=== PATIENT | male | born 1975 | race Caucasian/White ===

== ENCOUNTER 2018-01-05 10:39 | Inpatient (IN) | payer BC, OTHER ==
[2018-01-05] MEDS ORDERED: LABETALOL 5 MG/ML VIAL MDV IVP STA ×4 (10:59→15:55)
[2018-01-05 11:32] LABS: Basophils % (A) 1 %; Eosinophils # (A) 0.2 k/uL (0-0.7); Eosinophils % (A) 2 %; HCT 47.9 % (39.0-53.0); HGB 16.5 gm/dL (13.0-17.5); Lymphocytes % (A) 12 %; MCH 28.3 pg (25.0-35.0); MCHC 34.3 g/dL (31.0-37.0); MCV 82.3 fL (80.0-100.0); Monocytes # (A) 0.6 k/uL (0-1.0); Monocytes % (A) 7 %; Neutrophils % (A) 76 %; Platelet Count 286 k/uL (150-450); RBC 5.82 m/uL (4.30-5.90); RDW 13.1 % (11.5-15.5); WBC 7.9 k/uL (3.8-10.6)
--- NOTE | 2018-01-05 11:39 | ED ---
General Adult HPI - General Chief complaint: Recheck/Abnormal Lab/Rx Stated complaint: Hypertensive Time Seen by Provider: 01/05/18 10:49 Source: patient, RN notes reviewed, old records reviewed Mode of arrival: ambulatory Limitations: no limitations - History of Present Illness Initial comments: This is a 42-year-old male to the ER for evaluation. States patient's presenting for evaluation regards to elevated blood pressure. Patient has history of high blood pressure but takes no medication. Patient was seen his primary care doctor's office and sent to ER for evaluation regards to significantly elevated blood pressure. Patient is relatively symptomatically chest pain or shortness of breath no headache no abdominal pain. - Related Data Home Medications Medication Instructions Recorded Confirmed Dm/Acetaminophen/Doxylamine [Vicks 30 ml PO Q6HR PRN 01/05/18 01/05/18 Nyquil Cold-Flu Liquid] Ibuprofen [Motrin] 800 mg PO TID PRN 01/05/18 01/05/18 guaiFENesin SYRUP 100MG/5ML 200 mg PO Q6H PRN 01/05/18 01/05/18 [Robitussin] Allergies Allergy/AdvReac Type Severity Reaction Status Date / Time No Known Allergies Allergy Verified 01/05/18 10:53 Review of Systems ROS Statement: Those systems with pertinent positive or pertinent negative responses have been documented in the HPI. ROS Other: All systems not noted in ROS Statement are negative. Past Medical History Past Medical History: Hypertension History of Any Multi-Drug Resistant Organisms: None Reported Additional Past Surgical History / Comment(s): surgery to open blocked bile duct Past Psychological History: No Psychological Hx Reported Smoking Status: Never smoker Past Alcohol Use History: Occasional Past Drug Use History: None Reported General Exam Limitations: no limitations General appearance: alert, in no apparent distress Head exam: Present: atraumatic, normocephalic, normal inspection Eye exam: Present: normal appearance, PERRL, EOMI. Absent: scleral icterus, conjunctival injection, periorbital swelling ENT exam: Present: normal exam, mucous membranes moist Neck exam: Present: normal inspection. Absent: tenderness, meningismus, lymphadenopathy Respiratory exam: Present: normal lung sounds bilaterally. Absent: respiratory distress, wheezes, rales, rhonchi, stridor Cardiovascular Exam: Present: normal rhythm, tachycardia, normal heart sounds. Absent: systolic murmur, diastolic murmur, rubs, gallop, clicks GI/Abdominal exam: Present: soft, normal bowel sounds. Absent: distended, tenderness, guarding, rebound, rigid Extremities exam: Present: normal inspection, full ROM, normal capillary refill. Absent: tenderness, pedal edema, joint swelling, calf tenderness Back exam: Present: normal inspection Neurological exam: Present: alert, oriented X3, CN II-XII intact Psychiatric exam: Present: normal affect, normal mood Skin exam: Present: warm, dry, intact, normal color. Absent: rash Course Vital Signs 01/05/18 01/05/18 01/05/18 10:40 11:44 12:46 Temperature 97.8 F Pulse Rate 117 H 92 96 Respiratory 18 18 18 Rate Blood Pressure 225/158 189/124 195/126 O2 Sat by Pulse 95 96 97 Oximetry 01/05/18 14:20 Temperature 98.4 F Pulse Rate 89 Respiratory 20 Rate Blood Pressure 201/132 O2 Sat by Pulse 99 Oximetry - Reevaluation(s) Reevaluation #1: 01/05/18 14:52 Patient's blood pressure and heart rate remains elevated despite multiple medications. We'll admit for blood pressure control EKG Findings - EKG Comments: EKG Findings:: EKG shows normal sinus tachycardia rate of 106, [place] 160, QRS 78, QTC 491 Medical Decision Making - Medical Decision Making 42 male the ER for evaluation of respiratory infection. Patient is severely elevated blood pressure uncontrolled after for blood pressure medications here in the emergency room, patient be admitted for blood pressure control and treatment of underlying pneumonia, community-acquired - Lab Data Result diagrams: 01/05/18 11:10 01/05/18 11:10 Lab Results 01/05/18 01/05/18 01/05/18 Range/Units 11:10 11:10 11:10 WBC 7.9 (3.8-10.6) k/uL RBC 5.82 (4.30-5.90) m/uL Hgb 16.5 (13.0-17.5) gm/dL Hct 47.9 (39.0-53.0) % MCV 82.3 (80.0-100.0) fL MCH 28.3 (25.0-35.0) pg MCHC 34.3 (31.0-37.0) g/dL RDW 13.1 (11.5-15.5) % Plt Count 286 (150-450) k/uL Neutrophils % 76 % Lymphocytes % 12 % Monocytes % 7 % Eosinophils % 2 % Basophils % 1 % Neutrophils # 6.0 (1.3-7.7) k/uL Lymphocytes # 1.0 (1.0-4.8) k/uL Monocytes # 0.6 (0-1.0) k/uL Eosinophils # 0.2 (0-0.7) k/uL Basophils # 0.0 (0-0.2) k/uL Sodium 142 (137-145) mmol/L Potassium 4.8 (3.5-5.1) mmol/L Chloride 101 (98-107) mmol/L Carbon Dioxide 27 (22-30) mmol/L Anion Gap 14 mmol/L BUN 17 (9-20) mg/dL Creatinine 0.80 (0.66-1.25) mg/dL Est GFR (CKD-EPI)AfAm >90 (>60 ml/min/1.73 sqM) Est GFR (CKD-EPI)NonAf >90 (>60 ml/min/1.73 sqM) Glucose 140 H (74-99) mg/dL Calcium 9.9 (8.4-10.2) mg/dL Phosphorus 3.6 (2.5-4.5) mg/dL Magnesium 1.9 (1.6-2.3) mg/dL Total Bilirubin 0.8 (0.2-1.3) mg/dL AST 39 (17-59) U/L ALT 25 (21-72) U/L Alkaline Phosphatase 119 (38-126) U/L Total Creatine Kinase 135 (55-170) U/L CK-MB (CK-2) 1.1 (0.0-2.4) ng/mL CK-MB (CK-2) Rel Index 0.8 Troponin I <0.012 (0.000-0.034) ng/mL Total Protein 7.1 (6.3-8.2) g/dL Albumin 4.1 (3.5-5.0) g/dL TSH 0.922 (0.465-4.680) mIU/L Critical Care Time Critical Care Time: Yes Total Critical Care Time: 31 Disposition Clinical Impression: Hypertensive urgency, Community acquired pneumonia Disposition: ADMITTED IP TO THIS HOSP Condition: Fair Is patient prescribed a controlled substance at d/c from ED?: No Referrals: Kamran Bergeron DO [Primary Care Provider] - 1-2 days
[2018-01-05 11:49] LABS: ALT 25 U/L (21-72); AST 39 U/L (17-59); Albumin 4.1 g/dL (3.5-5.0); Alkaline Phosphatase 119 U/L (38-126); Anion Gap 14 mmol/L; Blood Urea Nitrogen 17 mg/dL (9-20); Calcium 9.9 mg/dL (8.4-10.2); Carbon Dioxide 27 mmol/L (22-30); Chloride 101 mmol/L (98-107); Glucose 140 mg/dL (74-99); Magnesium 1.9 mg/dL (1.6-2.3); Phosphorus 3.6 mg/dL (2.5-4.5); Sodium 142 mmol/L (137-145); Total Bilirubin 0.8 mg/dL (0.2-1.3); Total Protein 7.1 g/dL (6.3-8.2)
[2018-01-05 11:54] LABS: Creatine Kinase 135 U/L (55-170)
[2018-01-05 12:07] LABS: Creatine Kinase MB 1.1 ng/mL (0.0-2.4); Troponin I <0.012 ng/mL (0.000-0.034)
[2018-01-05 12:23] LABS: Potassium 4.8 mmol/L (3.5-5.1)
--- NOTE | 2018-01-05 13:23 | XR ---
EXAMINATION TYPE: XR chest 2V DATE OF EXAM: 01/05/2018 COMPARISON: NONE HISTORY: Chest pain with cough and congestion. TECHNIQUE: Frontal and lateral views of the chest are obtained. FINDINGS: There is suspicious right midlung opacity seen better on frontal view. Left lung is suspec juanita clear. No pleural effusion or pneumothorax is seen bilaterally. There is azygos lobe/fissure inci dentally seen. The cardiac silhouette size is within normal limits with atherosclerotic aorta. The osseous structures are intact. IMPRESSION: Suspicious right suprahilar acute infiltrate.
[2018-01-05] MEDS ORDERED: RX INFO: IV CONTRAST WAS GIVEN 1 EACH MISC MISCELLANE PRN (13:33)
[2018-01-05] MEDS ORDERED: AZITHROMYCIN 500 MG in SODIUM CHLORIDE 0.9% 250 ML IVPB STA (13:34)
--- NOTE | 2018-01-05 14:32 | CT ---
EXAMINATION TYPE: CT chest w con DATE OF EXAM: 01/05/2018 COMPARISON: NONE HISTORY: Mass, Pain CT DLP: 838 mGycm. Automated Exposure Control for Dose Reduction was Utilized. TECHNIQUE: CT scan of the thorax is performed following with IV Contrast, patient injected with 100 ml mL of Isovue 300. FINDINGS: LUNGS: Multifocal groundglass and tree-in-bud opacities are seen within the right upper lobe and righ t lower lobe most confluent within the right suprahilar region with few air bronchograms. Additionall y within the left lower lobe similar findings are seen with linear component of atelectasis. To lesse r degree left upper lobe and lingular tree-in-bud opacities are seen. Right middle lobe appears spare d. Incidental note is made of an azygous lobe and azygous fissure. MEDIASTINUM: Adenopathy within the mediastinum measures up to 1.5 cm in short axis in the left paratr acheal region. Ascending thoracic aorta is within normal limits of size measuring 3.6 cm. No perica rdial effusion is seen. OTHER: Minimal bilateral retroareolar gynecomastia is noted. Diffuse decreased attenuation of the hep atic parenchyma most commonly relates to hepatic steatosis. Pancreatic atrophy is partially visualize d. Mild multilevel degenerative changes of the thoracic spine are seen. IMPRESSION: Multifocal reticular nodular, groundglass, and tree-in-bud opacities most fitting of multifocal pneum onia with component of left basilar atelectasis and likely reactive mediastinal adenopathy. Atypical pneumonia should also be considered. Follow-up after treatment is recommended to ensure resolution gi bryan the multifocal nodularity.
[2018-01-05] MEDS ORDERED: LORazepam 2 MG/ML INJ IV STA ×2 (14:38→15:55)
[2018-01-05] MEDS ORDERED: cefTRIAXone IN SWFI 1,000 MG/10 ML SYRINGE IVP STA (14:49)
[2018-01-05] MEDS ORDERED: PNEUMONIA PROTOCOL UTILIZED 1 EACH MISC PO PRN (14:49)
[2018-01-05] MEDS ORDERED: hydrALAZINE HCL 20 MG/ML 1 ML VIAL IVP STA (14:52)
[2018-01-05] MEDS ORDERED: SODIUM CHLORIDE 0.9% 1,000 ML IV SCH (15:00)
[2018-01-05] MEDS ORDERED: MORPHINE SULFATE 4 MG/ML SYRINGE IVP STA ×2 (16:07→18:59)
[2018-01-05] MEDS: hydrALAZINE HCL 20 MG/ML 1 ML VIAL IVP PRN ×2 (19:07→22:25)
[2018-01-05] MEDS ORDERED: LABETALOL 5 MG/ML VIAL MDV IVP PRN (20:51)
[2018-01-05] MEDS ORDERED: LORazepam 2 MG/ML INJ IV PRN ×3 (20:55)
[2018-01-05] MEDS: HYDROcodone/APAP 5-325MG 1 EACH TAB PO PRN (20:58)
[2018-01-05] MEDS: METOPROLOL TARTRATE 50 MG TAB PO SCH (20:59)
[2018-01-05] MEDS ORDERED: LORazepam 1 MG TAB PO STA (23:38)
[2018-01-05] MEDS ORDERED: cloNIDine HCL 0.1 MG TAB PO PRN (23:44)
[2018-01-06] MEDS: cloNIDine HCL 0.1 MG TAB PO SCH ×4 (00:41→23:12)
[2018-01-06] MEDS: hydrALAZINE HCL 20 MG/ML 1 ML VIAL IVP PRN ×3 (02:54→10:28)
[2018-01-06] MEDS: HYDROcodone/APAP 5-325MG 1 EACH TAB PO PRN ×2 (04:49→08:42)
--- NOTE | 2018-01-06 06:48 | HP ---
HISTORY AND PHYSICAL DATE OF SERVICE: 01/05/2018 CHIEF COMPLAINT: Hypertension. HISTORY OF PRESENT ILLNESS: This 42-year-old gentleman with a past medical history of multiple medical problems include hypertension, sleep apnea, chronic back pain, DJD, history of smoking, occasional alcohol, being followed by Dr. Kamran Bergeron in the outpatient setting presented with hypertension. The blood pressure is elevated. The patient is apparently not taking medications. The patient was evaluated in the primary physician's office and sent to [facility] for further evaluation and treatment. Otherwise, there is no history of any fever, rigors. No history of headache, loss of consciousness, seizures at this time. The patient complains of minimal headache. The blood pressure has been elevated up to 209/124. There is no history of fever, rigors or chills at this time. The patient also complaining of cough and sputum and was thought to have some pneumonia on the chest x-ray especially the right suprahilar area. PAST MEDICAL HISTORY: History of hypertension, sleep apnea, history of DJD, history of nicotine dependence. MEDICATIONS: Medications prior to admission include: 1. Vicks NyQuil 30 mL q.6 p.r.n. 2. Motrin 800 mg t.i.d. p.r.n. 3. Robitussin 200 mg q.6 p.r.n. ALLERGIES: Allergies are none. FAMILY HISTORY: History of diabetes and hypertension. SOCIAL HISTORY: History of previous smoking and alcohol as mentioned earlier. REVIEW OF SYSTEMS: ENT: No diminished hearing or vision. CARDIOVASCULAR SYSTEM: No angina or palpitations, as mentioned earlier. RESPIRATORY SYSTEM: As mentioned earlier. GI: No nausea. : No dysuria. NERVOUS SYSTEM: No numbness or weakness. ALLERGY/IMMUNOLOGY: No history of asthma. MUSCULOSKELETAL: As mentioned earlier. HEMATOLOGY/ONCOLOGY: No history of anemia. ENDOCRINE: No history of diabetes or hypothyroidism. CONSTITUTIONAL: As mentioned earlier. DERMATOLOGY: Negative. RHEUMATOLOGY: Negative. PSYCHIATRY: As mentioned earlier. PHYSICAL EXAMINATION: The patient is alert and oriented x3. Pulse 95, blood pressure 197/120, respiration 18, temperature 98.4, pulse ox 94% on room air. HEENT: Conjunctivae normal. NECK: No jugular venous distention. CARDIOVASCULAR: S1 and S2 muffled. RESPIRATORY: Breath sounds diminished at the bases. A few scattered rhonchi. No crackles. ABDOMEN: Soft, nontender. No mass palpable. LEGS: No edema, no swelling. NERVOUS SYSTEM: Higher function as mentioned earlier. Moves all 4 limbs. No focal motor or sensory deficits LYMPHATICS: No lymphadenopathy of the neck, axillae or groin. SKIN: No ulcer, rash or bleeding. LABS: WBC 7.9, hemoglobin 16.5. Sodium 142. ASSESSMENT: 1. Accelerated and uncontrolled hypertension with hypertensive urgency. 2. Rule out pneumonia. 3. History of sleep apnea. 4. History of EtOH. 5. History of nicotine dependence. 6. History of diabetes mellitus, which is in remission per history. 7. Obesity with body mass index of 38.2. RECOMMENDATIONS AND DISCUSSION: In this 42-year-old gentleman who presented with multiple complex medical issues, will monitor the patient closely. Continue the current medications and symptomatic treatment. I would recommended empiric antibiotics otherwise clonidine and also I would recommend Cardiology evaluation also. I would also recommend symptomatic treatment, CIWA protocol for possible alcohol withdrawal. Prognosis guarded because of multiple complex medical issues. Further recommendations to follow. Discussed with the patient. A copy of dictation forwarded to Dr. Kamran Bergeron who is the primary physician. MMODL / IJN: [id number] /
--- NOTE | 2018-01-06 08:23 | XR ---
EXAMINATION TYPE: XR chest 2V DATE OF EXAM: 01/06/2018 COMPARISON: 01/05/2019 HISTORY: 42-year-old male pneumonia TECHNIQUE: Frontal and lateral views FINDINGS: Heart normal size. Aorta and pulmonary vasculature within normal limits. Suggestion of an azygos fiss ure. Focal patchy right midlung opacity persists. Lesser degree of patchy opacity at the lower left l yunior. No pleural effusion. IMPRESSION: Focal right midlung infiltrate persists. Some subtle patchy left lower lung density is also similar.
[2018-01-06] MEDS: METOPROLOL TARTRATE 50 MG TAB PO SCH (08:36)
[2018-01-06] MEDS ORDERED: cefTRIAXone IN SWFI 1,000 MG/10 ML SYRINGE IVP SCH (09:00)
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
[2018-01-06] MEDS: amLODIPine 5 MG TAB PO SCH ×2 (12:46→20:15)
[2018-01-06] MEDS: LISINOPRIL 20 MG TAB PO SCH (12:46)
[2018-01-06] MEDS: AZITHROMYCIN 500 MG TAB PO SCH (12:46)
[2018-01-06] MEDS ORDERED: ONDANSETRON 4 MG/2 ML VIAL IVP PRN (13:13)
[2018-01-06] MEDS ORDERED: AZITHROMYCIN 500 MG in SODIUM CHLORIDE 0.9% 250 ML IVPB SCH (16:00)
[2018-01-06] MEDS: ASPIRIN-ACET-CAFF 250-250-65MG 1 EACH TAB PO PRN (21:43)
--- NOTE | 2018-01-07 07:07 | PN ---
PROGRESS NOTE DATE OF SERVICE: 01/06/2018 PRESENTING COMPLAINT: Cough, short of breath. INTERVAL HISTORY: This patient presented with uncontrolled blood pressure and also pneumonia. Patient had been clearing shrubs. The patient is otherwise pretty healthy and active. I saw this patient earlier today. The patient slept well, having a bit of a headache, bit of a nausea. was present at the bedside. The patient is bringing up some thick green sputum. No obvious fever. Appetite is down, tired. REVIEW OF SYSTEMS: Review of systems done for constitutional, cardiovascular, GI, pulmonary; relevant findings as above. CURRENT MEDICATIONS: Current medications are reviewed that include Zithromax, Zestril, Norvasc. PHYSICAL EXAMINATION: On examination, afebrile pulse 117, respirations 18, blood pressure 195/126, pulse ox 97% on room air. GENERAL APPEARANCE: BMI 39. Lying in bed, tired appearing, awake. EYES: Pupils equal. Conjunctivae normal. HENT: External appearance of the nose and ears normal. Oral cavity normal. NECK: JVD not raised. Mass not palpable. RESPIRATORY: Effort increased. LUNGS: Decreased breath sounds, some basal crackles. CARDIOVASCULAR: First and second sounds normal. No edema. ABDOMEN: Soft, nontender. Liver and spleen not palpable. PSYCHIATRY: Alert and oriented x3. Mood and affect normal. NEUROLOGICAL: No focal weakness. Able to touch the chin down to his chest. INVESTIGATION: The patient's white count was normal when he came in. ASSESSMENT: 1. This is a patient with white count, afebrile, presented with bilateral infiltrates, more of atypical pneumonia. Patient was cleaning out shrubs. He likely picked up an atypical organism. 2. Obesity, body mass index 39. 3. It may be noted that patient is not hypoxic. 4. Toxic and headache from lack of sleep. PLAN: Cardiology is adjusting the patient's blood pressure medications. I did check on the patient later in the evening. The patient is actually feeling better. Will send off patient's sputum for Gram stain and culture. This probably will not show any atypical organisms. Will repeat blood work in the morning. The good thing is the patient is not hypoxic. Normal white count, afebrile, and like I stated patient is already feeling better in the evening. Care was discussed with the patient and both in the morning and the evening. CAMI / MALINAN: [id number] /
[2018-01-07] MEDS: AZITHROMYCIN 500 MG TAB PO SCH (07:59)
[2018-01-07] MEDS: ENOXAPARIN 40 MG/0.4 ML SYRINGE SQ SCH (07:59)
[2018-01-07] MEDS: amLODIPine 5 MG TAB PO SCH ×2 (07:59→20:23)
[2018-01-07] MEDS: cloNIDine HCL 0.1 MG TAB PO SCH (08:00)
[2018-01-07] MEDS: ASPIRIN-ACET-CAFF 250-250-65MG 1 EACH TAB PO PRN ×2 (08:42→18:56)
[2018-01-07] MEDS: ALBUTEROL NEBULIZED 2.5 MG/3 ML INHALATION SCH ×4 (08:56→20:28)
--- NOTE | 2018-01-07 11:11 | ECHOF ---
Referral Reason:htn MEASUREMENTS -------- HEIGHT: 182.9 cm WEIGHT: 130.2 kg BP: 188/115 RVIDd: 3.4 cm (< 3.3) IVSd: 1.9 cm (0.6 - 1.1) LVIDd: 4.2 cm (3.9 - 5.3) LVPWd: 1.9 cm (0.6 - 1.1) IVSs: 2.2 cm LVIDs: 2.2 cm LVPWs: 2.2 cm LAESV Index (A-L): 19.54 ml/m Ao Diam: 4.3 cm (2.0 - 3.7) AV Cusp: 1.8 cm (1.5 - 2.6) LA Diam: 3.2 cm (2.7 - 3.8) RAP: 5.00 mmHg RVSP: 32.66 mmHg FINDINGS -------- Sinus rhythm. This was a technically adequate study. The left ventricular size is normal. There is severe concentric left ventricular hypertrophy. Lef t ventricular systolic function is hyperdynamic with an estimated EF of >70%. The right ventricle is normal in size and function. Normal LA size by volume 22+/-6 ml/m2. The right atrium is normal in size. The aortic valve is trileaflet, and appears structurally normal. No aortic stenosis or regurgitation. The mitral valve is normal. There is trace to mild mitral regurgitation. Trace tricuspid regurgitation present. Right ventricular systolic pressure is normal at < 35 mmHg. There is no evidence of pulmonary hypertension. Trace/mild (physiologic) pulmonic regurgitation. The aortic root is mildy dilated up to 4.0cm. IVC Not well visulized. There is no pericardial effusion. CONCLUSIONS -------- 1. Sinus rhythm. 2. This was a technically adequate study. 3. The left ventricular size is normal. 4. There is severe concentric left ventricular hypertrophy. 5. Left ventricular systolic function is hyperdynamic with an estimated EF of >70%. 6. Normal LA size by volume 22+/-6 ml/m2. 7. The aortic valve is trileaflet, and appears structurally normal. No aortic stenosis or regurgitati on. 8. There is trace to mild mitral regurgitation. 9. Trace tricuspid regurgitation present. 10. Right ventricular systolic pressure is normal at < 35 mmHg. 11. There is no evidence of pulmonary hypertension. 12. Trace/mild (physiologic) pulmonic regurgitation. 13. The aortic root is mildy dilated up to 4.0cm. 14. IVC Not well visulized. 15. There is no pericardial effusion. ADMINISTRATIVE MEDICAL DIRECTOR: Kyle Waite RDCS
--- NOTE | 2018-01-07 11:46 | XR ---
EXAMINATION TYPE: XR chest 1V DATE OF EXAM: 01/07/2018 COMPARISON: 01/06/2018 HISTORY: Pneumonia. Follow-up exam. TECHNIQUE: Single frontal view of the chest is obtained. FINDINGS: There is near complete radiographic resolution the previously seen left basilar atelectasi s and right midlung opacity. Cardiomediastinal silhouette is again upper limits of normal in size. Az ygos fissure and azygos lobe are incidentally noted again. Osseous structures are intact with mild mu ltilevel degenerative changes of the thoracic spine. IMPRESSION: Near complete radiographic resolution of the previously seen right midlung pneumonia and left basilar atelectasis.
[2018-01-07] MEDS: LISINOPRIL 20 MG TAB PO SCH (12:12)
[2018-01-07] MEDS: IPRATROPIUM-ALBUTEROL 3 ML NEB INHALATION PRN (13:02)
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
--- NOTE | 2018-01-07 14:55 | P.PN ---
Subjective Progress Note Date: 01/07/18 This is a 42-year-old gentleman with history of hypertension, not currently taking any medications. History of sleep apnea. He states that he started exercising and eating right and his blood pressure seemed to improve. He denies any history of diabetes, no high cholesterol, he is a nonsmoker, he states that 5 days a week he drinks a minimum of 6 alcoholic beverages. Patient states that recently he's been having fevers at home as well as a productive cough of green sputum, approximately a week ago felt as though he had the flu. He was directed to come to the emergency room by his primary care doctor because of significantly elevated blood pressures. Blood pressure on arrival to 25/158, heart rate in the 1 teens, 95% on room air. Temperature was 97.8. Blood pressure this morning 188/115, heart rate in the 80s, 93% on room air. EKG on admission showed a sinus tachycardia no acute changes. Chest x- ray suspicious for right suprahilar acute infiltrate. CAT scan of the chest revealed multifocal reticular nodular groundglass Santiago obese, most fitting for multifocal pneumonia, component of left basilar atelectasis and likely reactive mediastinal adenopathy. Repeat chest x-ray this morning shows focal right midlung infiltrate. CBC is normal. Sodium 142, potassium 4.8, BUN 17, creatinine 0.8. Magnesium 1.9. Troponin 0.012, TSH 0.92. Influenza A and B were negative. 01/07/2018 Patient was seen and examined this morning, he states that he is feeling significantly better today. Blood pressure is improving significantly on his current medications. Blood pressure this morning 159/103, heart rate in the 80s , 94% on room air. The pressure earlier this morning 138/90 134/80. We will increase the dose of Catapres, continue the addition of other medications for blood pressure as well. Echocardiogram with Doppler study was performed which revealed a normal left ventricular systolic function. We will continue to monitor the patient for the next 24 hours, if stable possible discharge home in the morning. Objective - Vital Signs Vital signs: Vital Signs Temp 97.8 F 01/07/18 11:44 Pulse 92 01/07/18 13:14 Resp 16 01/07/18 11:44 BP 159/103 01/07/18 11:44 Pulse Ox 94 L 01/07/18 11:44 Intake & Output 01/06/18 01/07/18 01/07/18 18:59 06:59 18:59 Intake Total 2875 1184 Output Total 1000 Balance 1875 1184 Weight 127.1 kg Intake: Oral 2875 1184 Output: Emesis 1000 Other: Voiding Method Toilet Toilet Toilet Urinal Urinal Urinal # Voids 3 1 1 - Exam PHYSICAL EXAMINATION: HEENT: [Head is atraumatic, normocephalic. Pupils equal, round. Neck is supple. There is no elevated jugular venous pressure.] HEART EXAMINATION: [Heart S1, S2 normal. No murmur or gallop heard.] CHEST EXAMINATION:[ Lungs are clear to auscultation and precussion. No chest wall tenderness is noted on palpation or with deep breathing.] ABDOMEN: [ Soft, nontender. Bowel sounds are heard. No organomegaly noted]. EXTREMITIES:[ 2+ peripheral pulses with no evidence of peripheral edema and no calf tenderness noted]. NEUROLOGIC [patient is awake, alert and oriented -3.] . - Labs CBC & Chem 7: 01/05/18 11:10 01/05/18 11:10 Labs: Microbiology - Last 24 Hours (Table) 01/05/18 13:00 Blood Culture - Preliminary Blood No Growth after 24 hours Assessment and Plan Plan: Assessment and plan #1 hypertensive urgency #2 possible pneumonia, chest x-ray shows new infiltrate. Patient has had recent fever and chills at home, productive cough of green sputum. #3 sleep apnea #4 significant EtOH use, patient states that 5 days a week he drinks a minimum of 6 alcoholic beverages. Plan Echocardiogram with Doppler study revealed a normal left ventricular systolic function. We will increase the dose of clonidine today 2.2 mg 3 times a day, continue to monitor the patient for 24 hours, plan on possible discharge home in the morning if stable. Patient has been instructed strongly regarding the importance of EtOH cessation. DNP note has been reviewed, I agree with a documented findings and plan of care. Patient was seen and examined.
[2018-01-07] MEDS: cloNIDine HCL 0.2 MG TAB PO SCH ×2 (15:47→21:47)
--- NOTE | 2018-01-07 23:10 | PN ---
PROGRESS NOTE DATE OF SERVICE: 01/07/2018 PRESENTING COMPLAINT: Cough. INTERVAL HISTORY: This patient presented with uncontrolled blood pressure and pneumonia felt to be atypical organism. The patient is doing better this morning. Very little cough. Blood pressure medications were adjusted by Cardiology. The patient is going to take a shower. REVIEW OF SYSTEMS: Done for constitutional, cardiovascular, GI, pulmonary; relevant findings as above. CURRENT MEDICATIONS: Reviewed that include Ventolin, Norvasc 5 mg b.i.d., Zithromax 500 mg a day, Catapres 0.2 mg t.i.d., new increased dose today, Zestril 20 mg. PHYSICAL EXAMINATION: Temperature 97.9, pulse 79, respirations 16, blood pressure in the evening gone up to 178/104, pulse ox 93% on room air. GENERAL APPEARANCE: Sitting up, more comfortable. EYES: Pupils equal. Conjunctivae normal. HEENT: External appearance of nose and ears normal. Oral cavity normal. NECK: JVD not raised. Mass not palpable. Respiratory effort increased. LUNGS: Improved air entry. CARDIOVASCULAR: First and second sounds normal. No edema. ABDOMEN: Soft, nontender. Liver and spleen not palpable. PSYCHIATRY: Alert and oriented x3. Mood and affect normal. INVESTIGATIONS: A 2D echo showed preserved LV function, severe concentric left ventricular hypertrophy. ASSESSMENT: 1. Bilateral atypical pneumonia, responding well to Zithromax. 2. Obesity, BMI of 39. 3. Hypertensive heart disease. 4. Accelerated hypertension. 5. Toxic cephalgia, now resolved. PLAN: From a pulmonary standpoint, the patient is doing better. Dr. Stinson's consult noted. Blood pressure still running in the 170 systolic this evening. We will adjust the patient's lisinopril to lisinopril hydrochlorothiazide 20/12.5, starting a dose this evening. Hoping the patient can be discharged by tomorrow. MMODL / IJN: [id number] /
[2018-01-07] MEDS: LISINOPRIL-HCTZ 20-12.5 MG 1 EACH TAB PO SCH (23:17)
[2018-01-08 06:22] LABS: Basophils # (A) 0.1 k/uL (0-0.2); Basophils % (A) 1 %; Eosinophils # (A) 0.2 k/uL (0-0.7); Eosinophils % (A) 3 %; HGB 14.6 gm/dL (13.0-17.5); Lymphocytes # (A) 1.4 k/uL (1.0-4.8); Lymphocytes % (A) 20 %; MCH 27.8 pg (25.0-35.0); MCHC 33.2 g/dL (31.0-37.0); MCV 83.9 fL (80.0-100.0); Mean Platelet Volume 7.2; Monocytes # (A) 0.7 k/uL (0-1.0); Monocytes % (A) 11 %; Neutrophils # (A) 4.4 k/uL (1.3-7.7); Neutrophils % (A) 64 %; Platelet Count 308 k/uL (150-450); RBC 5.24 m/uL (4.30-5.90); RDW 13.4 % (11.5-15.5); WBC 6.9 k/uL (3.8-10.6)
[2018-01-08 06:39] LABS: Anion Gap 11 mmol/L; Blood Urea Nitrogen 16 mg/dL (9-20); Calcium 9.1 mg/dL (8.4-10.2); Carbon Dioxide 27 mmol/L (22-30); Chloride 100 mmol/L (98-107); Glucose 140 mg/dL (74-99); Potassium 4.1 mmol/L (3.5-5.1); Sodium 138 mmol/L (137-145)
[2018-01-08] MEDS: ALBUTEROL NEBULIZED 2.5 MG/3 ML INHALATION SCH ×4 (08:05→19:22)
[2018-01-08] MEDS: ENOXAPARIN 40 MG/0.4 ML SYRINGE SQ SCH (08:41)
[2018-01-08] MEDS: LISINOPRIL-HCTZ 20-12.5 MG 1 EACH TAB PO SCH (08:41)
[2018-01-08] MEDS: amLODIPine 5 MG TAB PO SCH ×2 (08:41→20:46)
[2018-01-08] MEDS: cloNIDine HCL 0.2 MG TAB PO SCH ×3 (08:42→21:44)
[2018-01-08] MEDS: AZITHROMYCIN 500 MG TAB PO SCH (08:42)
[2018-01-08] MEDS: ASPIRIN-ACET-CAFF 250-250-65MG 1 EACH TAB PO PRN (10:48)
[2018-01-08] MEDS ORDERED: IOPAMIDOL-300 CONTRAST 30 ML VIAL (ORAL USE) PO PRN (11:54)
[2018-01-08] MEDS ORDERED: RX INFO: IV CONTRAST WAS GIVEN 1 EACH MISC MISCELLANE PRN (11:54)
[2018-01-08] MEDS ORDERED: LISINOPRIL 10 MG TAB PO SCH (12:00)
[2018-01-08] MEDS: SPIRONOLACTONE-HCTZ 25-25MG 1 EACH TAB PO SCH (12:27)
[2018-01-08] MEDS: CARVEDILOL 12.5 MG TAB PO SCH ×2 (12:27→17:51)
--- NOTE | 2018-01-08 13:48 | P.PN ---
Subjective Progress Note Date: 01/08/18 Principal diagnosis: Acute bilateral pneumonia, recovered on Zithromax, hypertension A 42-year-old male patient, obese, known history of hypertension, who developed symptoms of URI approximately 2 weeks ago. He seems to be recovering and subsequently his condition got worse and the patient came in to the hospital because of increased cough, chest congestion and dyspnea. He was also having elevated blood pressure at time of admission. His pulse ox was 95% on room air at time of admission and he was afebrile. His blood pressure was high as 188/ 115. Chest x-ray showed bilateral patchy pulmonary infiltrates and following that the patient a CAT scan of the chest that showed bilateral pneumonia including multifocal reticular nodular groundglass changes involving the left basilar area and the right upper and lower lobe area. There is also some reactive lymphadenopathy within the mediastinum. The patient was placed on Zithromax. Interestingly the patient had 6 significant improvement and I reviewed a series of chest exit was done on 01/05 and then 01/06 and then 01/07/2018 , and the chest x-ray from today shows near complete radiographic resolution of the previously seen right midlung and left basilar infiltrates. Clinically the patient is doing much better. No significant cough or sputum production. Cultures of been negative. Blood work is also within normal limits. Influenza screen was negative. He has suspected obstructive sleep apnea. His been utilizing an old CPAP unit that was given to him by his father. Diagnosis of EMIGDIO has not been officially establish in this patient. No nausea. No vomiting. No diarrhea. No abdominal pain. No headaches. No change in mental status. He is drinking alcohol in excess. On 01/08/2018 patient seen in follow-up on selective care floor. In the chair, in no acute distress. Currently on room air, with O2 sat at 94%, afebrile, remains hypertensive, with SBP in the 150's-180's, and DBP over 100-110's range. Patient is currently on Norvasc 5 mg by mouth twice a day, clonidine 0.2 mg by mouth 3 times a day, and Zestoretic. Cardiology is adjusting patient' s antihypertensives. Patient's chest x-ray on 01/07/2018 shows near complete radiographic resolution of the previously seen multilobar pneumonia. Clinically patient is improving as well, denies any worsening dyspnea, denies any fever or chills or chest wall tenderness. Lung sounds are clear to auscultation, no wheezes, no rales or rhonchi noted. Objective - Vital Signs Vital signs: Vital Signs Temp 97.4 F L 01/08/18 08:45 Pulse 88 01/08/18 11:20 Resp 18 01/08/18 08:45 BP 185/115 01/08/18 08:45 Pulse Ox 94 L 01/08/18 08:45 Intake & Output 01/07/18 01/08/18 01/08/18 18:59 06:59 18:59 Intake Total 1424 300 360 Output Total 1 Balance 1424 299 360 Weight 128.2 kg Intake: Oral 1424 300 360 Output: Urine 1 Other: Voiding Method Toilet Toilet Toilet # Voids 1 - Exam Assessment 1 acute bilateral pneumonia, recovering on Zithromax. Series of chest x-rays during this current admission was noted and the chest x-ray from 9017 shows near-complete resolution of the described right and left lower lobe pulmonary infiltrates. 2 shortness of breath, improving 3 obesity BMI 38 4 obstructive sleep apnea 5 hypertension 6 questionable alcoholism Plan Continue oral Zithromax, and continue nebulized treatments. Patient is improving, remains hypertensive, and cardiology is making the necessary adjustments to the blood pressure medications. His standpoint patient remains stable and could be discharged home once cleared by cardiology and the attending I performed a history & physical examination of the patient and discussed their management with my nurse practitioner, Gina Whitehead. I reviewed the nurse practitioner's note and agree with the documented findings and plan of care. Lung sounds are positive for clear lung sounds. The findings and the impression was discussed with the patient. I attest to the documentation by the nurse practitioner. - Labs CBC & Chem 7: 01/08/18 05:57 01/08/18 05:57 Labs: Abnormal Lab Results - Last 24 Hours (Table) 01/08/18 Range/Units 05:57 Glucose 140 H (74-99) mg/dL Microbiology - Last 24 Hours (Table) 01/05/18 13:00 Blood Culture - Preliminary Blood No Growth after 48 hours 01/05/18 21:13 Gram Stain - Preliminary Sputum Sputum Culture - Preliminary Presumptive Staph aureus
--- NOTE | 2018-01-08 13:48 | P.PN ---
Subjective This patient is admitted with uncontrolled hypertension. His blood pressure still remains elevated in spite of the multiple medications due to CT of the abdomen and CT angiogram of the renal arteries to rule out any evidence of pheochromocytoma or renal artery stenosis. And is again advised not to use alcohol. Objective - Vital Signs Vital signs: Vital Signs Temp 97.4 F L 01/08/18 08:45 Pulse 88 01/08/18 11:20 Resp 18 01/08/18 08:45 BP 185/115 01/08/18 08:45 Pulse Ox 94 L 01/08/18 08:45 Intake & Output 01/07/18 01/08/18 01/08/18 18:59 06:59 18:59 Intake Total 1424 300 360 Output Total 1 Balance 1424 299 360 Weight 128.2 kg Intake: Oral 1424 300 360 Output: Urine 1 Other: Voiding Method Toilet Toilet Toilet # Voids 1 - Exam Patient's vital signs are reviewed. The patient is alert awake and in no acute distress. HEENT negative. Neck-supple no increase in JVP noted no carotid bruits noted. Chest-symmetrical. Heart-first and second heart sounds are normal. No S3 or S4 is noted. No significant murmurs are noted. Lungs bilateral good at entry is noted. No rales or rhonchi are noted Abdomen-soft. Liver and spleen are not enlarged. The bowel sounds are normal. No tenderness noted Extremities-peripheral pulses since are 2+. No significant leg edema noted. Neuro-no significant gross abnormality noted. - Labs CBC & Chem 7: 01/08/18 05:57 01/08/18 05:57 Labs: Abnormal Lab Results - Last 24 Hours (Table) 01/08/18 Range/Units 05:57 Glucose 140 H (74-99) mg/dL Microbiology - Last 24 Hours (Table) 01/05/18 13:00 Blood Culture - Preliminary Blood No Growth after 48 hours 01/05/18 21:13 Gram Stain - Preliminary Sputum Sputum Culture - Preliminary Presumptive Staph aureus Assessment and Plan Assessment: Patient's blood pressure remains uncontrolled. I we will add Coreg 25 mg twice a day Aldactone 25 mg daily
[2018-01-08] MEDS: IPRATROPIUM-ALBUTEROL 3 ML NEB INHALATION PRN (15:24)
--- NOTE | 2018-01-08 15:32 | PN ---
PROGRESS NOTE DATE OF SERVICE: 01/08/2018 PRESENTING COMPLAINT: High blood pressure. INTERVAL HISTORY: Patient presented with pneumonia, felt to be from atypical organism. Responded well to Zithromax. Also had uncontrolled blood pressure. Blood pressure still running high about [address]iscuss[address] with [address]. VC Ferrari from Cardiology. Medications will be adjusted and he is ordering workup for renal artery stenosis. Patient was diagnosed with high blood pressure about 11 years ago and he stated that in between he started exercising and eating healthy and he said he was informed his blood pressure was otherwise well controlled off medications. REVIEW OF SYSTEMS: Done for constitutional, cardiovascular, GI, pulmonary; relevant findings as above. No chest pain, breathing is stable. CURRENT MEDICATIONS: Reviewed. After today's adjustment, patient is on Norvasc 5 mg b.i.d., Coreg 25 p.o. b.i.d., Catapres 0.2 mg t.i.d., Aldactazide 25/25 one tablet daily, Zestril 40 mg p.o. daily. PHYSICAL EXAMINATION: Temperature 97.4, pulse 87, respiratory 18, blood pressure 185/115, pulse ox 94% on room air. GENERAL APPEARANCE: Sitting up in bed, comfortable. EYES: Pupils equal, conjunctivae normal. HEENT: External appearance of nose and ears normal, oral cavity normal. NECK: JVD not raised. Mass not palpable. RESPIRATORY: Effort normal. LUNGS: Fair entry. CARDIOVASCULAR: First and second sounds normal, no edema. ABDOMEN: Soft, nontender. Liver and spleen not palpable. PSYCHIATRY: Alert and oriented x3. Mood and affect normal. INVESTIGATIONS: White count 6.9, hemoglobin 14.6, potassium 4.1. BUN and creatinine are normal. ASSESSMENT: 1. Bilateral atypical pneumonia responded well to Zithromax. 2. Obesity, body mass index of 39. 3. Hypertensive heart disease with significant severe concentric left ventricular hypertrophy. 4. Accelerated hypertension. 5. Toxic cephalgia, resolved. PLAN: As per discussion of Dr. VC Ferrari, he has ordered a renal artery angio, CT angio to look at the renal arteries. Blood pressure medications were further adjusted. Care was discussed with the patient and . MMODL / IJN: [id number] /
--- NOTE | 2018-01-08 15:59 | CT ---
EXAMINATION TYPE: CT abdomen pelvis wo/w con DATE OF EXAM: 01/08/2018 COMPARISON: NONE INDICATION: Ruling out adrenal gland mass, elevated blood pressure DLP: 3470.50 mGycm, Automated exposure control for dose reduction was used. CONTRAST: 0 mL of Isovue 370. Study performed without Oral Contrast TECHNIQUE: Axial images were obtained from above the diaphragm to the pubic rami in the axial plane a t 5 mm thick sections. Reconstructed images are reviewed on the computer in the coronal plane. 2-D MIP imaging is performed. FINDINGS: Limited CT sections are obtained the lung bases. There is a left lower lobe consolidation. Correlate for pneumonia. Underlying mass should be followed.. CT ABDOMEN: Arterial phase Liver: Normal Spleen: Normal Pancreas: Normal Adrenal glands: The adrenal glands are normal. Gallbladder: Normal Kidneys: No masses are evident. No hydronephrosis is present. No cysts are present. Delayed images were obtained through the kidneys, which remain unremarkable. Aorta: Normal Inferior vena cava: Normal. CT PELVIS: Loops of bowel within the abdomen and pelvis are normal. There are loops of bowel which are incom pletely distended or lack oral contrast limiting their evaluation. Appendix: Normal as visualized. Urinary bladder: Normal. Genitourinary structures: Prostate appears unremarkable. Osseous structures: No suspicious lytic or sclerotic lesions. CTA: Attention is paid to the aorta. Contrast timing is over the arterial system. There is tortuosity of the common iliac vessels. The aorta is normally through its visualized course. There are 2 renal arteries. No aneurysmal dilatation of the aorta or common iliac vessels. Common i liac internal and external iliac and common femoral arteries are unremarkable. 2-D MIPS imaging is re viewed. IMPRESSIONS: 1. Normal aorta and arterial system to the proximal thighs. 2. CT abdomen pelvis appears within normal limits.
[2018-01-09 06:15] LABS: Basophils # (A) 0.1 k/uL (0-0.2); Basophils % (A) 1 %; Eosinophils # (A) 0.2 k/uL (0-0.7); Eosinophils % (A) 3 %; HCT 41.5 % (39.0-53.0); HGB 14.6 gm/dL (13.0-17.5); Lymphocytes # (A) 1.6 k/uL (1.0-4.8); Lymphocytes % (A) 24 %; MCH 28.8 pg (25.0-35.0); MCHC 35.3 g/dL (31.0-37.0); MCV 81.7 fL (80.0-100.0); Mean Platelet Volume 6.9; Monocytes # (A) 0.6 k/uL (0-1.0); Monocytes % (A) 9 %; Neutrophils # (A) 4.2 k/uL (1.3-7.7); Neutrophils % (A) 61 %; Platelet Count 319 k/uL (150-450); RBC 5.08 m/uL (4.30-5.90); RDW 12.7 % (11.5-15.5); WBC 6.8 k/uL (3.8-10.6)
[2018-01-09 06:27] LABS: Anion Gap 9 mmol/L; Blood Urea Nitrogen 19 mg/dL (9-20); Calcium 9.1 mg/dL (8.4-10.2); Carbon Dioxide 31 mmol/L (22-30); Chloride 99 mmol/L (98-107); Glucose 133 mg/dL (74-99); Sodium 139 mmol/L (137-145)
[2018-01-09] MEDS: CARVEDILOL 12.5 MG TAB PO SCH ×2 (07:01→17:38)
[2018-01-09 08:35] VITALS: RESP 18
[2018-01-09] MEDS: ALBUTEROL NEBULIZED 2.5 MG/3 ML INHALATION SCH ×3 (08:37→16:28)
[2018-01-09] MEDS ORDERED: LISINOPRIL 20 MG TAB PO SCH (09:00)
[2018-01-09] MEDS: cloNIDine HCL 0.2 MG TAB PO SCH ×2 (10:02→16:02)
[2018-01-09] MEDS: SPIRONOLACTONE-HCTZ 25-25MG 1 EACH TAB PO SCH (10:02)
[2018-01-09] MEDS: amLODIPine 5 MG TAB PO SCH (10:02)
[2018-01-09] MEDS: ENOXAPARIN 40 MG/0.4 ML SYRINGE SQ SCH (10:03)
[2018-01-09] MEDS: AZITHROMYCIN 500 MG TAB PO SCH (10:03)
--- NOTE | 2018-01-09 14:14 | P.PN ---
Subjective Progress Note Date: 01/09/18 42-year-old obese male patient with a BMI of 38.3 was Hospital as for bilateral pneumonia. His pneumonia is improved and Zithromax. Sputum analysis showed MSSA. He is currently on room air oxygen. No costovertebral production or chest tightness or wheezing. Meanwhile, the patient was noted to have elevation in the blood pressure. Currently is on a combination of Aldactazide 25/25 one tablet daily, clonidine 0.2 mg 3 times a day and Coreg 25 mg twice a day. Blood pressures are much better controlled for now. No angina. No palpitation. No chest pain. Objective - Vital Signs Vital signs: Vital Signs Temp 97.6 F 01/09/18 11:45 Pulse 72 01/09/18 11:45 Resp 18 01/09/18 11:45 BP 136/98 01/09/18 11:45 Pulse Ox 93 L 01/09/18 11:45 Intake & Output 01/08/18 01/09/18 01/09/18 18:59 06:59 18:59 Intake Total 1320 380 840 Output Total 250 Balance 1320 130 840 Weight 128 kg Intake: Oral 1320 380 840 Output: Urine 250 Other: Voiding Method Toilet Toilet # Voids 2 2 # Bowel Movements 0 0 - Exam Gen. appearance obese, comfortable likely distress Head exam was generally normal. There was no scleral icterus or corneal arcus. Mucous membranes were moist. Neck is supple there is no JVDs no goiter or neck masses and the patient has a Mallampati class IV Cardiac exam revealed the PMI to be normally situated and sized. The rhythm was regular and no extrasystoles were noted during several minutes of auscultation. The first and second heart sounds were normal and physiologic splitting of the second heart sound was noted. There were no murmurs, rubs, clicks, or gallops. Lungs sounds are diminished bilaterally especially lung bases. Abdominal exam revealed normal bowel sounds. The abdomen was soft, non-tender, and without masses, organomegaly, or appreciable enlargement of the abdominal aorta. Examination of the extremities revealed easily palpable radial, femoral and pedal pulses. There was no cyanosis, clubbing or edema. Examination of the skin revealed no evidence of significant rashes, suspicious appearing nevi or other concerning lesions. Neurologically the patient is awake and alert and there is no focal neurological deficit. - Labs CBC & Chem 7: 01/09/18 05:58 01/09/18 05:58 Labs: Abnormal Lab Results - Last 24 Hours (Table) 01/09/18 Range/Units 05:58 Carbon Dioxide 31 H (22-30) mmol/L Glucose 133 H (74-99) mg/dL Microbiology - Last 24 Hours (Table) 01/05/18 21:13 Gram Stain - Final Sputum Sputum Culture - Final Staphylococcus aureus 01/05/18 13:00 Blood Culture - Preliminary Blood No Growth after 72 hours Assessment and Plan Plan: 1 acute bilateral pneumonia, recovering on Zithromax. Series of chest x-rays during this current admission was noted and the chest x-ray from 9017 shows near-complete resolution of the described right and left lower lobe pulmonary infiltrates. The sputum cultures yielded MSSA. Despite that, the patient has responded very nicely to Zithromax and this will be continued. 2 shortness of breath, improving 3 obesity BMI 38 4 obstructive sleep apnea 5 hypertension, with poorly controlled blood pressure and the patient is currently on a combination of mental hypertensive medication. 6 questionable alcoholism Plan The patient can be discharged home on Zithromax to complete a seven-day course. Outpatient follow-up chest x-ray. Outpatient sleep evaluation regarding the possibility of obstructive sleep apnea. Blood pressure is under better control with a combination of cataracts, Aldactazide and Coreg. Weight loss. Discharge per medicine.
[2018-01-09 16:22] VITALS: BP 152/102; TEMP 97.8
[2018-01-09 16:41] VITALS: PULSE 80
--- NOTE | 2018-01-10 04:57 | DS ---
DISCHARGE SUMMARY DATE OF ADMISSION: January 05, 2018. DATE OF DISCHARGE: January 09, 2018. FINAL DIAGNOSES: 1. Bilateral atypical pneumonia present on admission. 2. Obesity BMI 39. 3. Accelerated hypertension. 4. Toxic cephalgia, resolved. 5. Hypertensive heart disease with significant positive left ventricular hypertrophy. HOSPITAL COURSE: This patient has had blood pressure for quite some time, presented with short of breath. Found to have bilateral atypical pneumonia. Responded well to antibiotics, especially Zithromax. X-rays are clearly improved. Seen by Dr. Stinson from Pulmonary. The patient also had uncontrolled blood pressure. 2D echo showed severe concentric left ventricular hypertrophy. Blood pressure at the time of discharge was down to 152/102. CONSULTATION: Dr. Stinson from Pulmonary, Dr. VC Ferrari from Cardiology. DISCHARGE MEDICATIONS: 1. Motrin 800 mg p.o. t.i.d. p.r.n. 2. Ventolin 1-2 puffs q.6h p.r.n. 3. Coreg 25 mg p.o. b.i.d. 4. Zestril 40 mg q.h.s. 5. Aldactazide 25/25 1 tab p.o. daily. 6. Norvasc 10 mg p.o. daily. 7. Catapres 0.2 mg p.o. t.i.d. FOLLOW UP: With Dr. Bergeron in 3 days, follow with Dr. Grace Ferrari on February 03, 2018. Copy to Dr. Bergeron. PHYSICAL EXAMINATION: On examination, lungs are clear. Cardiovascular 1st and second sounds normal. MMODL / IJN: [id number] /
--- NOTE | 2018-01-12 17:04 | CDI ---
Last Revision, August 2017 Documentation Clarification Form Date: 01/12/18 From: Amalia Cesario Kristi Fallon, Business Asst Hours-8:30 am & 5 pm M-F Admit Date: 01/05/2018 2:49:00 PM Patient Name: Woodrow Webster Visit Number: [id number] Discharge Date: 01/09/18 ATTENTION: The Clinical Documentation Specialists (CDI) and [facility] Coding Staff appreciate your assistance in clarifying documentation. Please respond to the clarification below the line at the bottom and electronically sign. The CDI & [facility] Coding staff will review the response and follow-up if needed. Please note: Queries are made part of the Legal Health Record. If you have any questions, please contact the author of this message via ITS. Dr. Scott Rubio Pneumonia was documented in HP, DS and the progress notes. Culture: MSSA History/Risk Factors: EMIGDIO, HTN WBC/Left shift: none Antibiotics: IV Zithromax, IV Rocephin 2 L NC O2 Breathing Tx: Duoneb, In order to capture the severity of condition, please clarify if the condition signifies and you are treating for: Aspiration Pneumonia, identify if: Bacterial Pneumonia, specify causal organism (if known) Gram Negative Pneumonia Due to MSSA Other, please specify Unable to determine Please continue to document in your progress notes and discharge summary in order to capture severity of illness and risk of mortality. Include clinical findings that support your diagnosis. __ unable to determine MTDD
== END 2018-01-09 18:13 | disposition home or self-care (01) | DRG 194 ==
LOC: EC 10:39 → 6SEL 14:49
PROVIDERS: ADMIT Hospitalist; ATTEND Hospitalist
DX: J18.9 Pneumonia, unspecified organism (principal); J98.11 Atelectasis; I16.0 Hypertensive urgency; I11.9 Hypertensive heart disease without heart failure; E11.9 Type 2 diabetes mellitus without complications; G47.33 Obstructive sleep apnea (adult) (pediatric); M54.9 Dorsalgia, unspecified; G89.29 Other chronic pain; M19.91 Primary osteoarthritis, unspecified site; R51 Headache; R59.0 Localized enlarged lymph nodes; E66.9 Obesity, unspecified; Z68.38 Body mass index [BMI] 38.0-38.9, adult; Z72.89 Other problems related to lifestyle; Z87.891 Personal history of nicotine dependence; Z83.3 Family history of diabetes mellitus; Z82.49 Family history of ischemic heart disease and other diseases of the circulatory system
CPT/HCPCS: 36415; 71045; 71046; 71260; 74175; 74178; 80048; 80053; 82550; 82553; 83735; 84100; 84443; 84484; 85025; 87040; 87070; 87077; 87186; 87205; 87502; 93005; 93306; 94640; 94760; 96361; 96365; 96366; 96375; 96376; 99291

== ENCOUNTER → 2018-10-20 | Outpatient (CLI) | payer OTHER ==
--- NOTE | 2018-10-20 10:47 | US ---
EXAMINATION TYPE: US renal artery duplex complet DATE OF EXAM: 10/20/2018 COMPARISON: NONE CLINICAL HISTORY: I10. Essential Primary hypertension. MEASUREMENTS: Morbidly obese patient. Technically difficult limited study. RENAL SIZE: Rt Kidney: 11.2 x 5.3 x 5.2 Lt Kidney: 11.8 x 5.7 x 5.4 RESISTANCE INDEX Right: 0.67 Left: 0.57 RA/AO RATIO (< 3.5 ) Right: 1.4 Left: 1.2 RA VELOCITY ( < 180 cm/s) Right: 128cm/s Left: 111cm/s Limited visualization of renal artery bilaterally due to overlying bowel gas and body habitus. No evident renal artery stenosis in this limited study. IMPRESSION: No sonographic evidence of renal arterial stenosis.
== END ==
LOC: RADUSMAIN 09:00
PROVIDERS: ATTEND Family Medicine
DX: I10 Essential (primary) hypertension (principal)
CPT/HCPCS: 93975

== ENCOUNTER → 2018-11-19 | Outpatient (CLI) | payer OTHER ==
--- NOTE | 2018-11-19 12:40 | CONS ---
CONSULTATION DATE OF SERVICE: 11/19/2018 This 42-year-old gentleman had been evaluated in the sleep center for possible obstructive sleep apnea-hypopnea syndrome. HISTORY OF PRESENT ILLNESS/SLEEP-WAKE EVALUATION: Patient usual sleep schedule on working days from 10 p.m. until 6 a.m., on weekends from 11 p.m. until 7 or 8 a.m. Sometimes he has problem with falling asleep, although no TV in bedroom. He usually sleeps on the back and side position with loud snoring and witnessed episodes of stopped breathing during the sleep. The patient wakes up from sleep 2 times with nocturia. During the day, he has episodes of irritability. [place] Sleepiness Scale is 4. The patient usually does not take any naps. For the last year, he increased his weight around 20 pounds. No history of hypnagogic hallucinations, sleep paralysis or cataplexy. PAST MEDICAL HISTORY: Positive for hypertension and back problems. MEDICATIONS: Carvedilol, clonidine, spironolactone, amlodipine, lisinopril. PAST SURGICAL HISTORY: Surgery for bile duct closing. SOCIAL HISTORY: Positive for smoking for 2 years. Quit 1 year ago. Alcohol consumption 5 times a week, around 6 beers. REVIEW OF SYSTEMS: Awakenings from sleep, back pain. FAMILY HISTORY: Hypertension, sleep apnea, snoring. PHYSICAL EXAMINATION: During physical exam, gentleman without distress. VITAL SIGNS: BP 136/91, HR 78, RR 16, height 5 feet 11 inches, weight 302.2 pounds, body mass index 42.1, temperature 98.4, oxygen saturation at room air 97%. HEENT: PERRLA, EOMI. Oropharynx extremely low position of soft palate. Mallampati 4. NECK: Wide neck, 18-1/4 inches in circumference. LUNGS: Clear to percussion and to auscultation. Good air exchange. No wheezing or rhonchi. HEART: S1, S2 regular. No murmurs, gallops, or rubs. ABDOMEN: Slightly obese. EXTREMITIES: 1+ ankle edema. EXPORT MANAGER : Awake, alert, and oriented X3. Cranial nerves 2 to 7 intact. There is no fasciculation or atrophy. noted. No focal deficits observed. IMPRESSION: 1. Snoring, witnessed episodes of stopped breathing during the sleep, extremely low position of soft palate, Mallampati 4, wide neck, obstructive sleep apnea-hypopnea syndrome. 2. Obesity, body mass index 42.1. 3. Hypertension on treatment with 5 medications. 4. Back problems. 5. Status post surgery on the bile duct. PLAN: 1. Sleep study for evaluation of patient's breathing during sleep. 2. CPAP/BiPAP titration if sleep study confirms obstructive sleep apnea-hypopnea syndrome. 3. Preferable position during sleep on the side. 4. No driving if patient feels any sleepiness. 5. I will see patient for follow up visit to explain results of testing and following plan. Thank you very much for referring this patient for consultation. Sincerely, Brayden Bettencourt MD, PhD, FAASM Diplomat of [employer] Nozzleman [facility] [place] CAMI / ADAM: [id number] /
== END ==
LOC: SLEEP 11:20
PROVIDERS: ATTEND Internal Medicine
DX: G47.33 Obstructive sleep apnea (adult) (pediatric) (principal); E66.9 Obesity, unspecified; I10 Essential (primary) hypertension; M54.89 Other dorsalgia; Z98.890 Other specified postprocedural states; Z68.41 Body mass index [BMI] 40.0-44.9, adult; Z99.89 Dependence on other enabling machines and devices; Z79.899 Other long term (current) drug therapy; Z87.891 Personal history of nicotine dependence
CPT/HCPCS: 99211

== ENCOUNTER → 2019-02-11 | Outpatient (CLI) | payer OTHER ==
--- NOTE | 2019-02-11 11:22 | SFUN ---
SLEEP CENTER FOLLOW UP NOTE DATE OF SERVICE: 02/11/2019. This 43-year-old gentleman had been followed in sleep center for treatment of obstructive sleep apnea-hypopnea syndrome. Recently patient home had home sleep apnea test which showed moderate obstructive sleep apnea-hypopnea syndrome. Subsequently, he had CPAP titration and I received CPAP unit. Today is his first visit after he was started on treatment with CPAP. The patient is able to use CPAP equipment every night without significant problems related to the pressure. He changed mask to the different style of nasal pillows. I checked CPAP unit. CPAP pressure of 10 cm of water. The usage is every night and 28 out of 30 nights more than 4 hours with average usage 6.0 hours. Leak is 90 L/minute, which is borderline. Apnea-hypopnea index was 2.3, which is in normal range. [place] Sleepiness Scale today is 2. MEDICATIONS: Carvedilol, clonidine, spironolactone, amlodipine, lisinopril. PHYSICAL EXAMINATION: During physical exam, patient in no distress. VITAL SIGNS: BP 123/83, HR 72, RR 16, weight 287, temp 97.7, oxygen saturation on room air 100%. HEENT: PERRLA, EOMI. Oropharynx extremely low position of soft palate. Mallampati 4. NECK: Supple, no JVD. Thyroid is not palpable. LUNGS: Clear to percussion and to auscultation. Good air exchange. No wheezing or rhonchi. HEART: S1, S2 regular. No murmurs, gallops, or rubs. ABDOMEN: Slightly obese. EXTREMITIES: No clubbing or cyanosis. MEDIA RELATIONS SPECIALIST: Awake, alert, and oriented X3. Cranial nerves 2 to 7 intact. There is no fasciculation or atrophy. noted. No focal deficits observed. IMPRESSION: 1. Obstructive sleep apnea-hypopnea syndrome in moderate range. Apnea-hypopnea index 22.6 with oxygen desaturation to 86% on control with CPAP at 10 cm of water. Patient demonstrated great compliance with treatment, benefitting from treatment. 2. Obesity. 3. Hypertension. 4. Back problems. 5. Status post surgery on the bile duct. PLAN: 1. Patient will continue to use CPAP equipment every night for the whole night. 2. Losing weight. 3. Sleep hygiene with regular time in bed for at least 8 hours. 4. No driving if feeling any sleepiness. 5. We will maintain all necessary CPAP prescriptions for the mask, tube, filters. 6. Followup visit in about 1 year or earlier if patient has any problems. Thank you very much for allowing me to participate in management of your patient. Sincerely, Brayden Bettencourt MD, PhD, FAASM Diplomat of [employer] [facility] [place] MMODL / MALINAN: [id number] /
== END | disposition home or self-care (01) ==
LOC: SLEEP 10:33
PROVIDERS: ATTEND Internal Medicine
DX: G47.33 Obstructive sleep apnea (adult) (pediatric) (principal); E66.9 Obesity, unspecified; I10 Essential (primary) hypertension; M54.9 Dorsalgia, unspecified; Z99.89 Dependence on other enabling machines and devices; Z98.890 Other specified postprocedural states; Z79.899 Other long term (current) drug therapy